=== PATIENT | female | born 1990 | race Caucasian/White ===

== ENCOUNTER 2018-01-07 18:19 | Observation (INO) ==
[2018-01-07] MEDS ORDERED: RINGER'S SOLUTION,LACTATED 1,000 ML IV PRN ×2 (18:36→19:47)
[2018-01-07] MEDS ORDERED: NIFEdipine 10 MG CAPSULE PO ONE (18:36)
[2018-01-07 19:03] LABS: Urine Bilirubin Negative (NEGATIVE); Urine Blood Negative /ul (NEGATIVE); Urine Ketone 15 mg/dL (NEGATIVE); Urine Nitrite Negative (NEGATIVE); Urine Protein Negative (NEGATIVE); Urine Specific Gravity <=1.005 SP.GR. (1.005-1.010); Urine Urobilinogen Normal (NORMAL); Urine pH 6.5 pH (5.0-7.0)
[2018-01-07 19:16] LABS: Urine Appearance Clear (CLEAR); Urine Bacteria None Seen; Urine Color Yellow; Urine RBC None Seen /hpf (0-5); Urine WBC 0-5 /hpf (0-5)
[2018-01-07 19:35] VITALS: BP 125/76
--- NOTE | 2018-01-07 19:48 | HP ---
Chief Complaint - Chief Complaint Date of Service: 01/07/18 Chief Complaint: contractions History of Present Illness: 27 yo, CF, at 35.1 weeks, presents with contractions since last night. Initially they were about 20 min apart and now every few minutes. Denies bleeding or leaking fluid. Denies UTI symptoms. The is complicated by second trimester bleeding at 16-18 weeks. GBS unknown. PMH: none PSH: lap cholecystectomy 2016 SH: not contributory. All: penicillin, unknown reactions. Medical History (Last Updated 12/03/17 @ 10:26 by Bisi Nava) Abnormal Pap smear of cervix Onset Date: ~2014 Anemia Onset Date: ~2017 Chlamydia Onset Date: ~2010 Esophageal reflux disease Onset Date: ~2009 Fatigue Onset Date: 03/06/12 Gastric ulcer Onset Date: ~2009 Spontaneous Onset Date: 12/09/16 Surgical History: Surgical History (Last Updated 12/03/17 @ 10:26 by Bisi Nava) History of adenoidectomy Onset Date: 04/19/99 History of esophagogastroduodenoscopy (EGD) Onset Date: 09/06/09 History of tonsillectomy Onset Date: 04/19/99 Hx laparoscopic cholecystectomy Onset Date: 12/19/15 Family History: Family History (Last Updated 12/03/17 @ 10:34 by Bisi Nava) Mother Kidney disease Grandmother Cancer Social History: Preferred Language Georgian Abuse History No History of abuse Psych History No pertinent hx Review Of Systems (GEN) - Review of Systems Abdominal: Present: Other - contractions Misc: All systems neg except as marked Allergies/Adverse Reactions: Allergies Allergy/AdvReac Type Severity Reaction Status Date / Time Penicillins Allergy Mild Hives, Verified 01/07/18 18:57 swelling Home Medications: HOME MEDICATIONS ferrous sulfate 325 mg (65 mg iron) tablet,delayed release 325 mg PO DAILY tab 12/03/17 [Last Taken Unknown] vitamin,calcium,qgumksqz-jovh-rtsda acid tablet 1 tab PO DAILY [Last Taken Unknown] Exam - Exam Vital Signs: BP 141/76, 153/87, 126/77, 139/75, 125/76 P: 105 R 18 O2 sat 99% T 98.4 Constitutional: Present: Alert, Oriented x3, Cooperative Neck: Present: supple Back Exam: Present: no CVA tenderness Respiratory: Present: normal breath sounds, no respiratory distress, No rales, No wheezing Cardiovascular/Chest: Present: regular rate, rhythm, no murmur Abdomen: Present: soft, nontender, nondistended, other - gravid /Rectal: Present: Other - 1-1.5 cm, 100%, small bulging bag Extremity: Present: no pedal edema, no calf tenderness Skin Exam: Present: normal color, warm/dry, no cyanosis Appearance: Present: appropriate appearance Eye contact: Present: cooperative, good eye contact, normal speech Diagnostic Studies: Abnormal Lab Results 01/07/18 Range/Units Unknown Ur Leukocyte Esterase 25 H (NEGATIVE) /ul Urine Comment Culture ordered L Laboratory Results Urine Color Yellow 01/07/18 Unknown Urine Appearance Clear (CLEAR) 01/07/18 Unknown Urine pH 6.5 pH (5.0-7.0) 01/07/18 Unknown Ur Specific [place] <=1.005 SP.GR. (1.005-1.010) 01/07/18 Unknown Urine Protein Negative mg/dL (NEGATIVE) 01/07/18 Unknown Urine Glucose (UA) Negative mg/dL (NEGATIVE) 01/07/18 Unknown Urine Ketones 15 mg/dL (NEGATIVE) 01/07/18 Unknown Urine Blood Negative /ul (NEGATIVE) 01/07/18 Unknown Urine Nitrate Negative (NEGATIVE) 01/07/18 Unknown Urine Bilirubin Negative mg/dl (NEGATIVE) 01/07/18 Unknown Urine Urobilinogen Normal EU/dl (NORMAL) 01/07/18 Unknown Ur Leukocyte Esterase 25 /ul (NEGATIVE) H 01/07/18 Unknown Urine RBC None seen /hpf (0-5) 01/07/18 Unknown Urine WBC 0-5 /hpf (0-5) 01/07/18 Unknown Ur Epithelial Cells None seen /hpf (0-5) 01/07/18 Unknown Urine Bacteria None seen (NONE) 01/07/18 Unknown Urine Comment Culture ordered L 01/07/18 Unknown Assessment/Plan - Narrative Narrative: FHR: cat 1 [place]: irregular contractions q1-5 min A: 27 yo, CF, at 35.1 weeks with contractions, dilated to 1 cm with a small bag of water, GBS unknown Plan 1. monitor. u/a and culture sent. 2. hydration with LR and one dose of procardia for now. 3. discussed possible false labor, early labor. If progress, will transfer to [facility]. 4. discussed risks and benefits of steroid at this gestational age. will readdress later. 5. possible discharge if stable. Betsy Hurt MD
[2018-01-07] MEDS ORDERED: ceFAZolin SODIUM/DEXTROSE,ISO 2 GM/50 ML BAG IV SCH (20:15)
[2018-01-07] MEDS ORDERED: BETAMETHASONE ACETATE,SOD PHOS 6 MG/ML VIAL IM ONE (20:30)
[2018-01-08] MEDS ORDERED: ceFAZolin SODIUM 1 GM in DEXTROSE 5 % IN WATER 100 ML IV SCH ×2 (04:30)
== END 2018-01-07 21:45 | disposition short-term general hospital (02) ==
LOC: OBCLINIC 18:19 → INTOOBSV 21:13 → OB 21:13
PROVIDERS: ADMIT Obstetrics & Gynecology; ATTEND Obstetrics & Gynecology
CPT/HCPCS: 59025; 81001; 87077; 87081; 87086; 96361; 96365; 96372; G0378

== ENCOUNTER 2019-02-26 23:19 | Inpatient (IN) ==
[2019-02-27 00:09] LABS: Cocaine Ur Negative (NEGATIVE); Urine Barbiturate Negative (NEGATIVE); Urine Benzodiazepines Negative (NEGATIVE); Urine Opiates Negative (NEGATIVE); Urine PCP Negative (NEGATIVE); Urine THC Negative (NEGATIVE)
[2019-02-27] MEDS ORDERED: OXYTOCIN/DEXTROSE 5%-WATER 30 UNITS/500 ML BAG IV ONE ×2 (02:03→11:03)
[2019-02-27] MEDS ORDERED: ONDANSETRON HCL/PF 2 MG/ML VIAL IV PRN (02:35)
[2019-02-27] MEDS ORDERED: BUPIVACAINE HCL/0.9 % NACL/PF 250 ML EP PRN (02:35)
[2019-02-27] MEDS ORDERED: NALOXONE HCL 1 MG/1 ML SYRG IV PRN (02:35)
[2019-02-27] MEDS ORDERED: fentaNYL CITRATE/PF 50 MCG/ML AMPUL IT SCH (02:45)
--- NOTE | 2019-02-27 03:15 | ANES ---
Post Anesthesia Assessment - Vital Signs Vitals: Last Vital Signs Temp 36.8 C 02/26/19 23:46 Pulse 84 02/26/19 23:46 Resp 16 02/26/19 23:46 BP 120/74 02/26/19 23:46 Pulse Ox 98 02/26/19 23:46 Airway Patency: Normal - Mental Status Level Of Consciousness: Awake - Pain Level Pain Score: 2 - N/V Assessment Nausea/Vomiting Presence: None Dehydration:: No
--- NOTE | 2019-02-27 03:15 | ANES ---
Anesthesia Pre Procedure Eval Vitals/Labs: Last Vital Signs Temp 36.8 C 02/26/19 23:46 Pulse 84 02/26/19 23:46 Resp 16 02/26/19 23:46 BP 120/74 02/26/19 23:46 Pulse Ox 98 02/26/19 23:46 HOME MEDICATIONS ferrous sulfate 325 mg (65 mg iron) tablet,delayed release 325 mg PO DAILY tab 12/03/17 [Last Taken Unknown] vitamin,calcium,shafiwnz-jwks-vijci acid tablet 1 tab PO DAILY 12/03/17 [Last Taken Unknown] Allergies/Adverse Reactions: Allergies Allergy/AdvReac Type Severity Reaction Status Date / Time Penicillins Allergy Mild Hives, Verified 02/26/19 23:23 swelling - Planned Procedure Planned Procedure: labor Medication List Reviewed:: Yes Allergies Verified: Yes Medical History (Updated 12/10/18 @ 12:05 by Alize Joya RN) Short interval between pregnancies affecting , antepartum (Acute) Polyp at cervical os (Acute) Abnormal Pap smear of cervix Onset Date: ~2014 x1-repeat WNL Anemia Onset Date: ~2017 2018 & 2019- with pregnancies Chlamydia Onset Date: ~2010 treated Esophageal reflux disease Onset Date: ~2009 Fatigue Onset Date: 03/06/12 Gastric ulcer Onset Date: ~2009 Spontaneous Onset Date: 12/09/16 History of delivery Onset Date: 01/08/18 @ 35 weeks Surgical History (Updated 01/07/18 @ 19:47 by Betsy Hurt MD) History of adenoidectomy Onset Date: 04/19/99 [place] History of esophagogastroduodenoscopy (EGD) Onset Date: 09/06/09 [place]-squamous mucosa w/esophagitis, chemical gastropathy. Clotest negative. History of tonsillectomy Onset Date: 04/19/99 Hx laparoscopic cholecystectomy Onset Date: 12/19/15 [place] Family History (Updated 12/03/17 @ 10:34 by Bisi Nava CMA) Mother Kidney disease Grandmother , maternal Cancer lymphoma - Respiratory Smoking Status: Never smoker - Anesthesia Assessment and Plan ASA Class: PS, II, E Anesthesia Type Plan: Epidural Planned difficult intubation/equipment available: No
--- NOTE | 2019-02-27 03:15 | ANES ---
Post Anesthesia Discharge - Transfer of Care Transfer of Care handoff given to nurse: Yes - Anesthesia Post Op Note Anesthesia Post Op Note: Care transferred to OB RN
--- NOTE | 2019-02-27 03:17 | ANES ---
Anesthesia Procedure Note Procedure Note: ANESTHESIA PROCEDURE NOTE Date of Procedure: 02/27/2013 Time of procedure: . Performed by: Demond Carey CRNA [place] Supervisor: None. Preprocedure diagnosis: Active labor. Post procedure diagnosis: Same. Procedure: Insertion of labor epidural. Indications: The patient is a 28-year-old multigravida female in active labor requesting labor epidural for pain management. Findings: See below. Details of the procedure: The patient was placed in a sitting position. Back was prepped with DuraPrep. Patient was then draped in a sterile fashion. Lidocaine 1% was infiltrated to the skin and subcutaneous tissues at the level of the L3 4 interspace. The epidural space was identified using a 18-gauge Tuohy needle with [id number]-tiryqlwrtv technique. 20 mcg fentanyl was given intrathecally using a 27 ga. spinal needle. Epidural catheter was inserted without difficulty. Negative test dose was elicited using 5 mL of 1.5% preservative-free lidocaine plus epinephrine 1 200,000. The epidural catheter was then taped and secured in place. EBL: Minimal. Fluids: N/A. Specimen: N/A. Post procedure condition: The patient tolerated the procedure well. No complications were noted. Thank you for this consultation. Rose CRNA
[2019-02-27] MEDS ORDERED: RINGER'S SOLUTION,LACTATED 1,000 ML IV ONE (03:50)
--- NOTE | 2019-02-27 08:14 | HP ---
Chief Complaint - Chief Complaint Date of Service: 02/27/19 Time of Service: 08:06 Chief Complaint: contractions History of Present Illness: 28 yo at 37 5/7 weeks admitted for labor. Patient complains of contractions of increased frequency and intensity. This complicated by h/o PPROM/PTD at 35wks and short interval . Rh positive Rubella immune GBS negative Medical History (Updated 12/10/18 @ 12:05 by Alize Joya RN) Short interval between pregnancies affecting , antepartum (Acute) Polyp at cervical os (Acute) Abnormal Pap smear of cervix Onset Date: ~2014 x1-repeat WNL Anemia Onset Date: ~2017 2018 & 2019- with pregnancies Chlamydia Onset Date: ~2010 treated Esophageal reflux disease Onset Date: ~2009 Fatigue Onset Date: 03/06/12 Gastric ulcer Onset Date: ~2009 Spontaneous Onset Date: 12/09/16 History of delivery Onset Date: 01/08/18 @ 35 weeks Surgical History: Surgical History (Updated 01/07/18 @ 19:47 by Betsy Hurt MD) History of adenoidectomy Onset Date: 04/19/99 [place] History of esophagogastroduodenoscopy (EGD) Onset Date: 09/06/09 [place]-squamous mucosa w/esophagitis, chemical gastropathy. Clotest negative. History of tonsillectomy Onset Date: 04/19/99 Hx laparoscopic cholecystectomy Onset Date: 12/19/15 [place] Family History: Family History (Updated 12/03/17 @ 10:34 by Bisi Nava CMA) Mother Kidney disease Grandmother , maternal Cancer lymphoma Social History: (Last Reviewed 02/27/19 @ 08:11 by Samir Lauren DO) Social History: adopted: No fpc: No Marital status: household members: spouse, children number of children: 1 current occupational status: employed current occupation: [employer] current occupational exposures/hazards: No Highest education level completed: Master's degree Sexually Active: Yes Service: No Tobacco: Smoking Status: Never smoker Alcohol: alcohol intake: current alcohol intake frequency: a few times a week details: none since Substance Use: substance use type: does not use Dietary Habits: caffeine: Yes caffeine comment: 1-2 daily Type: coffee Exercise: frequency: 1-2 times per week Joselin/Taoist: agree to transfusion: Yes Review Of Systems (GEN) - Review of Systems Generalized/Overall Review: Present: No Symptoms Reported EENTM: Present: No Symptoms Reported Respiratory: Present: No Symptoms Reported Cardiac: Present: No Symptoms Reported Abdominal: Present: Other - contractions Genitourinary: Present: No Symptoms Reported Musculoskeletal: Present: No Symptoms Reported Neurological: Present: No Symptoms Reported Skin: Present: No Symptoms Reported Endocrine: Present: No Symptoms Reported Allergies/Adverse Reactions: Allergies Allergy/AdvReac Type Severity Reaction Status Date / Time Penicillins Allergy Mild Hives, Verified 02/26/19 23:23 swelling Home Medications: HOME MEDICATIONS ferrous sulfate 325 mg (65 mg iron) tablet,delayed release 325 mg PO DAILY tab 12/03/17 [Last Taken Unknown] vitamin,calcium,yqkbnhkm-wrdh-cbsda acid tablet 1 tab PO DAILY 12/03/17 [Last Taken Unknown] Exam - Exam Vital Signs: Vital Signs - Last Taken Temp 36.8 C 02/26/19 23:46 Pulse 84 02/26/19 23:46 Resp 16 02/26/19 23:46 BP 120/74 02/26/19 23:46 Pulse Ox 98 02/26/19 23:46 Constitutional: Present: Alert, Oriented x3, Cooperative, Moderate distress - with contractions ENT Exam: Present: hearing grossly normal Breasts: Present: Exam deferred Respiratory: Present: lungs clear, no respiratory distress Cardiovascular/Chest: Present: regular rate, rhythm, no edema Abdomen: Present: soft, nontender, no rebound tenderness, other - gravid /Rectal: Present: Other - cervix 6-7/60/-1 Extremity: Present: no pedal edema, no calf tenderness Skin Exam: Present: normal color, warm/dry, no cyanosis Neurologic: Present: alert, normal mood/affect, oriented x 3 Appearance: Present: appropriate appearance, appropriate insight Eye contact: Present: cooperative, good eye contact, normal speech Thoughts: Present: normal thought pattern, normal mood /affect Diagnostic Studies: Laboratory Results Negative (NEGATIVE) 02/26/19 23:48 Negative (NEGATIVE) 02/26/19 23:48 Ur Phencyclidine Scrn Negative (NEGATIVE) 02/26/19 23:48 Urine Amphetamine Negative (NEGATIVE) 02/26/19 23:48 U Benzodiazepines Scrn Negative (NEGATIVE) 02/26/19 23:48 Negative (NEGATIVE) 02/26/19 23:48 Negative (NEGATIVE) 02/26/19 23:48 NST reactive Assessment/Plan - Assessment/Plan (1) Labor established Assessment: Admit for labor. Epidural PRN. Problem: Acute (2) Short interval between pregnancies affecting , antepartum Problem: Acute (3) History of delivery, currently Problem: Acute
--- NOTE | 2019-02-27 08:37 | PN ---
Progess Note - Interim Date: 02/27/19 Time: 08:26 Narrative: 02/27/19 08:26 Patient comfortable with epidural Vital signs stable. 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 If rupturing membranes does not result in further cervical change, will place [facility].
[2019-02-27] MEDS ORDERED: GLYCERIN/WITCH HAZEL LEAF 40 APPL BOX TP PRN (11:03)
[2019-02-27] MEDS ORDERED: SENNOSIDES 8.6 MG TABLET PO PRN (11:03)
[2019-02-27] MEDS ORDERED: BENZOCAINE/MENTHOL 81 SPRAY CAN TP PRN (11:03)
[2019-02-27] MEDS ORDERED: HYDROCORTISONE 30 APPL TUBE TP PRN (11:03)
[2019-02-27] MEDS ORDERED: oxyCODONE HCL/ACETAMINOPHEN 1 TAB TABLET PO PRN (11:03)
[2019-02-27] MEDS ORDERED: IBUPROFEN 800 MG TABLET PO PRN (11:03)
[2019-02-27] MEDS ORDERED: BISACODYL 10 MG SUPP.RECT RC PRN (11:03)
--- NOTE | 2019-02-27 11:06 | OR ---
Operative Report - Dictated Report Narrative: Spontaneous vaginal delivery of vigorously crying viable male at 1045 on 02/27/2019 with Apgars 9 and 9, weighing 3457 g in ZUNILDA position. Cord clamping delayed approximately 1 minute Placenta delivered complete, intact, with three vessel cord Estimated blood loss: Less than 50 ml Anesthesia: Epidural Lacerations: None History for MU History for MU Definition: * The number of deliveries resulting in a live the patient experienced prior to current hospitalization * The previous delivery of live twins or any live multiple gestation is considered one live event. *If primagravida or nulliparous is documented select zero for the number of previous live births. Live Events: Live Events: 1
[2019-02-27] MEDS: IBUPROFEN 800 MG TABLET PO PRN (12:23)
[2019-02-27] MEDS: DOCUSATE SODIUM 100 MG CAPSULE PO SCH (23:02)
[2019-02-28] MEDS: IBUPROFEN 800 MG TABLET PO PRN (01:58)
--- NOTE | 2019-02-28 09:24 | PN ---
Subjective - Date and Time Seen Date: 02/28/19 Time: 09:24 Objective - Vitals Vitals: Last Vital Signs Temp 36.3 C 02/28/19 07:52 Pulse 70 02/28/19 07:52 Resp 18 02/28/19 07:52 BP 126/82 02/28/19 07:52 Pulse Ox 100 02/28/19 07:52 Patient denies complaints. Lochia wnl abdomen - soft, nontender Uterus -firm, at umbilicus - 1 no calf tenderness Impression: day #1 - s/p spontaneous vaginal delivery. Plan: Continue routine care Cauti Physician Documentation - Urinary Catheter Management Urethral ([place]ral[place]) Date of Insertion: 02/27/19 Time of Insertion: 03:25 Assessment/Plan - Problems/Diagnosis (1) Labor established Problem: Acute (2) Short interval between pregnancies affecting , antepartum Problem: Acute (3) History of delivery, currently Problem: Acute
[2019-02-28] MEDS: DOCUSATE SODIUM 100 MG CAPSULE PO SCH ×2 (10:25→21:10)
[2019-03-01] MEDS: DOCUSATE SODIUM 100 MG CAPSULE PO SCH (08:44)
--- NOTE | 2019-03-01 09:07 | PN ---
Subjective - Date and Time Seen Date: 03/01/19 Time: 09:06 Objective - Vitals Vitals: Last Vital Signs Temp 36.4 C 03/01/19 07:55 Pulse 78 03/01/19 07:55 Resp 16 03/01/19 07:55 BP 118/70 03/01/19 07:55 Pulse Ox 100 03/01/19 07:55 Patient denies complaints. Lochia wnl abdomen - soft, nontender Uterus -firm, at umbilicus - 2 no calf tenderness Impression: day #2 - s/p spontaneous vaginal delivery. Plan: Routine discharge instructions Cauti Physician Documentation - Urinary Catheter Management Urethral (C[place]rales) Date of Insertion: 02/27/19 Time of Insertion: 03:25 Assessment/Plan - Problems/Diagnosis (1) Labor established Problem: Acute (2) Short interval between pregnancies affecting , antepartum Problem: Acute (3) History of delivery, currently Problem: Acute
[2019-03-01 13:23] VITALS: BP 120/68
[2019-03-02] MEDS ORDERED: FERROUS SULFATE 325 MG TABLET PO SCH (09:00)
[2019-03-02] MEDS ORDERED: PRENATAL VITS96/IRON FUM/FOLIC 1 TAB TABLET PO SCH (09:00)
== END 2019-03-01 17:28 | disposition home or self-care (01) | DRG 807 ==
LOC: OBCLINIC 23:19 → OB 02-27 01:36
PROVIDERS: ADMIT Obstetrics & Gynecology; ATTEND Obstetrics & Gynecology
CPT/HCPCS: 59025; 80307